=== PATIENT | female | born 1990 | race Caucasian/White ===

== ENCOUNTER 2024-04-23 13:08 | Emergency (ER) | payer MEDICAID ==
[~2024-04-23] VITALS: Ht 175.2 cm; Wt 58.1 kg
[2024-04-23] MEDS ORDERED: SODIUM CHLORIDE 0.9% 1,000 ML IV ONE (14:20)
[2024-04-23 14:37] LABS: BASO # 0.1 10*3/uL (0.0-0.1); BASO % 0.7 % (0.0-1.0); EOS # 0.2 10*3/uL (0.0-0.4); EOS % 2.4 % (1.0-4.0); HEMATOCRIT 43.4 % (37.0-47.0); MEAN CELL VOLUME 97.5 fl (81.0-99.0); MEAN CORPUSCULAR HGB 30.3 pg (27.0-31.0); MEAN CORPUSCULAR HGB CONC 31.1 g/dl (33.0-37.0); MEAN PLATELET VOLUME 10.8 fl (9.6-12.3); MONO # 0.5 10*3/uL (0.1-1.0); MONO % 5.3 % (3.0-9.0); NEUT # 8.2 10*3/uL (2.3-7.9); NEUT % 81.3 % (47.0-73.0); PLATELET COUNT AUTOMATED 196 10*3/uL (130-400); RED BLOOD COUNT 4.45 10*6/uL (4.10-5.10); RED CELL DISTRI WIDTH 11.9 % (0-14.5); WHITE BLOOD COUNT 10.1 10*3/uL (4.8-10.8)
[2024-04-23 14:45] LABS: BILIRUBIN Negative (Negative); BLOOD Negative (Negative); CLARITY Clear (Clear); COLOR Yellow (Yellow); GLUCOSE Negative (Negative); KETONE Negative (Negative); LEUKO ESTERASE 2+ (Negative); NITRITE Negative (Negative)
[2024-04-23] MEDS ORDERED: Ondansetron Hydrochloride 4 MG TAB SL ONE (14:50)
[2024-04-23 14:51] LABS: URINE AMPHETAMINES Negative (1000ng/ml); URINE BARBITURATES Negative (200ng/ml); URINE BENZODIAZEPINES Negative (200ng/ml); URINE CANNABINOIDS (THC) Negative (50ng/ml); URINE COCAINE Negative (300ng/ml); URINE METHADONE Negative (300ng/ml); URINE OPIATES Positive (300ng/ml); URINE PHENCYCLIDINE Negative (25ng/ml)
[2024-04-23 14:52] LABS: BACTERIA 1+
[2024-04-23 14:54] LABS: ALKALINE PHOSPHATASE 105 U/L (46-116); BUN 14 mg/dl (9-23); CHLORIDE 105 mmol/L (98-107); POTASSIUM 3.8 mmol/L (3.4-5.1); SGPT/ALT 21 U/L (5-49); TOTAL PROTEIN 7.3 gm/dL (6.0-8.0)
[2024-04-23] MEDS ORDERED: ZITHROMAX250 MG PO (17:53)
== END 2024-04-23 17:44 | disposition home or self-care (01) ==
LOC: ED 13:08
PROVIDERS: Internal Medicine
DX: K59.00 Constipation, unspecified (principal); R11.2 Nausea with vomiting, unspecified; Z87.442 Personal history of urinary calculi; Z88.0 Allergy status to penicillin; Z88.6 Allergy status to analgesic agent; Z88.8 Allergy status to other drugs, medicaments and biological substances; Z90.49 Acquired absence of other specified parts of digestive tract; Z90.710 Acquired absence of both cervix and uterus; Z98.890 Other specified postprocedural states

== ENCOUNTER 2024-05-07 20:50 | Emergency (ER) | payer MEDICAID ==
[~2024-05-07] VITALS: Ht 175.2 cm; Wt 56.2 kg
[~2024-05-07 20:50] MED LIST: ZITHROMAX250 MG PO
[2024-05-07] MEDS ORDERED: METHYLPHENIDATE72 MG PO (20:59)
[2024-05-07] MEDS ORDERED: TRAZODONE150 MG PO (20:59)
[2024-05-07] MEDS ORDERED: TRULICITY1.5 MG/0.5 SC (20:59)
[2024-05-07] MEDS ORDERED: TIZANIDINE HCL4 MG PO (21:00)
[2024-05-07] MEDS ORDERED: NEURONTIN300 MG PO (21:00)
[2024-05-07] MEDS ORDERED: HYDROmorphONE Hydrochloride 0.5 MG/0.5 ML SYRINGE IM ONE (21:15)
== END 2024-05-07 23:11 | disposition home or self-care (01) ==
LOC: ED 20:50
DX: S80.12XA Contusion of left lower leg, initial encounter (principal); E10.9 Type 1 diabetes mellitus without complications; Z87.442 Personal history of urinary calculi; Z88.0 Allergy status to penicillin; Z88.6 Allergy status to analgesic agent; Z88.8 Allergy status to other drugs, medicaments and biological substances; Z90.49 Acquired absence of other specified parts of digestive tract; Z90.710 Acquired absence of both cervix and uterus; Z98.890 Other specified postprocedural states; W54.1XXA Struck by dog, initial encounter; Y93.89 Activity, other specified; Y92.009 Unspecified place in unspecified non-institutional (private) residence as the place of occurrence of the external cause; Y99.8 Other external cause status

== ENCOUNTER 2024-08-13 18:16 | Emergency (ER) | payer MEDICAID ==
[~2024-08-13] VITALS: Ht 175.2 cm; Wt 57.2 kg
[~2024-08-13 18:16] MED LIST changes: +METHYLPHENIDATE72 MG PO; +NEURONTIN300 MG PO; +TIZANIDINE HCL4 MG PO; +TRAZODONE150 MG PO; +TRULICITY1.5 MG/0.5 SC
[2024-08-13 20:32] LABS: BASO # 0.1 10*3/uL (0.0-0.1); BASO % 1.7 % (0.0-1.0); EOS # 0.5 10*3/uL (0.0-0.4); EOS % 8.6 % (1.0-4.0); HEMATOCRIT 37.8 % (37.0-47.0); LYMPH # 1.6 10*3/uL (1.3-4.4); LYMPH % 26.4 % (27.0-41.0); MEAN CELL VOLUME 98.2 fl (81.0-99.0); MEAN CORPUSCULAR HGB 30.4 pg (27.0-31.0); MEAN PLATELET VOLUME 10.3 fl (9.6-12.3); MONO # 0.5 10*3/uL (0.1-1.0); MONO % 8.8 % (3.0-9.0); NEUT # 3.2 10*3/uL (2.3-7.9); NEUT % 54.2 % (47.0-73.0); PLATELET COUNT AUTOMATED 212 10*3/uL (130-400); RED BLOOD COUNT 3.85 10*6/uL (4.10-5.10); RED CELL DISTRI WIDTH 13.5 % (0-14.5); WHITE BLOOD COUNT 5.9 10*3/uL (4.8-10.8)
[2024-08-13 20:46] LABS: BUN 18 mg/dl (9-23); CHLORIDE 107 mmol/L (98-107); POTASSIUM 4.2 mmol/L (3.4-5.1)
[2024-08-13] MEDS ORDERED: CLINDAMYCIN HC300 MG PO (20:52)
[2024-08-13] MEDS ORDERED: CLINDAMYCIN HCL 300 MG CAPSULE PO ONE (20:55)
[2024-08-13] MEDS ORDERED: Acetaminophen/Oxycodone 5 MG/325 MG TABLET PO ONE (21:00)
== END 2024-08-13 21:28 | disposition home or self-care (01) ==
LOC: ED 18:16
PROVIDERS: Physician Assistant Medical
DX: S02.5XXA Fracture of tooth (traumatic), initial encounter for closed fracture (principal); K08.89 Other specified disorders of teeth and supporting structures; E10.9 Type 1 diabetes mellitus without complications; Z88.0 Allergy status to penicillin; Z88.5 Allergy status to narcotic agent; Z88.6 Allergy status to analgesic agent; Z88.8 Allergy status to other drugs, medicaments and biological substances; Z90.49 Acquired absence of other specified parts of digestive tract; Z90.710 Acquired absence of both cervix and uterus; Z98.890 Other specified postprocedural states; Z87.442 Personal history of urinary calculi; X58.XXXA Exposure to other specified factors, initial encounter; Y93.89 Activity, other specified; Y92.89 Other specified places as the place of occurrence of the external cause; Y99.8 Other external cause status

== ENCOUNTER 2024-11-09 14:47 | Emergency (ER) | payer MEDICAID ==
[~2024-11-09] VITALS: Ht 175.2 cm; Wt 59.9 kg
[~2024-11-09 14:47] MED LIST changes: +CLINDAMYCIN HC300 MG PO
[2024-11-09] MEDS ORDERED: SODIUM CHLORIDE 0.9% 100 ML BAG IV ONE (16:00)
[2024-11-09] MEDS ORDERED: IOHEXOL 350 MG/ML 100 ML VIAL IV ONE (16:00)
[2024-11-09 16:51] LABS: BASO # 0.1 10*3/uL (0.0-0.1); BASO % 1.2 % (0.0-1.0); EOS # 0.3 10*3/uL (0.0-0.4); EOS % 5.8 % (1.0-4.0); HEMATOCRIT 39.4 % (37.0-47.0); MEAN CELL VOLUME 94.5 fl (81.0-99.0); MEAN CORPUSCULAR HGB 29.7 pg (27.0-31.0); MEAN CORPUSCULAR HGB CONC 31.5 g/dl (33.0-37.0); MEAN PLATELET VOLUME 10.8 fl (9.6-12.3); MONO # 0.5 10*3/uL (0.1-1.0); NEUT # 3.6 10*3/uL (2.3-7.9); NEUT % 61.5 % (47.0-73.0); PLATELET COUNT AUTOMATED 268 10*3/uL (130-400); RED BLOOD COUNT 4.17 10*6/uL (4.10-5.10); RED CELL DISTRI WIDTH 13.2 % (0-14.5); WHITE BLOOD COUNT 5.9 10*3/uL (4.8-10.8)
[2024-11-09 17:12] LABS: BUN 12 mg/dl (9-23); CHLORIDE 106 mmol/L (98-107); POTASSIUM 4.2 mmol/L (3.4-5.1)
== END 2024-11-09 18:26 | disposition home or self-care (01) ==
LOC: ED 14:47
PROVIDERS: Physician Assistant Medical
DX: S76.911A Strain of unspecified muscles, fascia and tendons at thigh level, right thigh, initial encounter (principal); R06.02 Shortness of breath; R07.89 Other chest pain; R04.2 Hemoptysis; M54.6 Pain in thoracic spine; E10.9 Type 1 diabetes mellitus without complications; Z86.718 Personal history of other venous thrombosis and embolism; Z87.442 Personal history of urinary calculi; Z88.0 Allergy status to penicillin; Z88.8 Allergy status to other drugs, medicaments and biological substances; Z88.5 Allergy status to narcotic agent; Z88.6 Allergy status to analgesic agent; Z90.710 Acquired absence of both cervix and uterus; Z90.49 Acquired absence of other specified parts of digestive tract; Z98.890 Other specified postprocedural states; X58.XXXA Exposure to other specified factors, initial encounter; Y93.89 Activity, other specified; Y92.009 Unspecified place in unspecified non-institutional (private) residence as the place of occurrence of the external cause; Y99.8 Other external cause status

== ENCOUNTER 2025-01-14 18:56 | Emergency (ER) | payer SELFPAY ==
[~2025-01-14] VITALS: Ht 175.2 cm; Wt 68.9 kg
[2025-01-14] MEDS ORDERED: Phenergan25 MG PO (19:14)
[2025-01-14] MEDS ORDERED: MORPHINE SULFAT20 MG SL (19:16)
[2025-01-14] MEDS ORDERED: TRANSDERM-SCOP1 EAC1 TD (19:17)
[2025-01-14] MEDS ORDERED: GABAPENTIN 300 MG CAP PO ONE (19:25)
[2025-01-14] MEDS ORDERED: Ondansetron Hydrochloride 4 MG TAB SL ONE (19:25)
[2025-01-14] MEDS ORDERED: Acetaminophen/Oxycodone 5 MG/325 MG TABLET PO ONE (19:25)
[2025-01-14 20:14] LABS: BASO # 0.1 10*3/uL (0.0-0.1); BASO % 1.2 % (0.0-1.0); EOS # 0.5 10*3/uL (0.0-0.4); EOS % 5.9 % (1.0-4.0); HEMATOCRIT 38.9 % (37.0-47.0); MEAN CELL VOLUME 93.5 fl (81.0-99.0); MEAN CORPUSCULAR HGB 28.8 pg (27.0-31.0); MEAN CORPUSCULAR HGB CONC 30.8 g/dl (33.0-37.0); MEAN PLATELET VOLUME 10.9 fl (9.6-12.3); MONO # 0.5 10*3/uL (0.1-1.0); MONO % 6.5 % (3.0-9.0); NEUT # 5.2 10*3/uL (2.3-7.9); NEUT % 67.7 % (47.0-73.0); PLATELET COUNT AUTOMATED 239 10*3/uL (130-400); RED BLOOD COUNT 4.16 10*6/uL (4.10-5.10); RED CELL DISTRI WIDTH 13.3 % (0-14.5); WHITE BLOOD COUNT 7.7 10*3/uL (4.8-10.8)
[2025-01-14] MEDS ORDERED: Ondansetron Hydrochloride 4 MG/2 ML VIAL IV ONE ×2 (20:15→21:30)
[2025-01-14] MEDS ORDERED: HYDROmorphONE Hydrochloride 0.5 MG/0.5 ML SYRINGE IV ONE ×2 (20:15→21:30)
[2025-01-14 20:33] LABS: BUN 12 mg/dl (9-23); CHLORIDE 103 mmol/L (98-107)
== END 2025-01-14 21:50 | disposition home or self-care (01) ==
LOC: ED 18:56
PROVIDERS: Internal Medicine
DX: M25.512 Pain in left shoulder (principal); E10.9 Type 1 diabetes mellitus without complications; C50.919 Malignant neoplasm of unspecified site of unspecified female breast; Z86.718 Personal history of other venous thrombosis and embolism; Z87.442 Personal history of urinary calculi; Z88.0 Allergy status to penicillin; Z88.8 Allergy status to other drugs, medicaments and biological substances; Z88.6 Allergy status to analgesic agent; Z88.5 Allergy status to narcotic agent; Z90.49 Acquired absence of other specified parts of digestive tract; Z90.710 Acquired absence of both cervix and uterus; Z98.890 Other specified postprocedural states

== ENCOUNTER 2025-02-15 22:19 | Emergency (ER) | payer MEDICAID ==
[~2025-02-15] VITALS: Wt 59.0 kg
[~2025-02-15 22:19] MED LIST changes: +ATARAX,VISTARIL50 MG PO; +BENZONATATE100 M1 PO; +CYTOTEC200 MCG PO; +IRON325 M1 PO; +LASIX20 MG PO; +MORPHINE SULFAT20 MG SL; +ONDANSETRON ODT16 MG PO; +PRILOSEC20 M1 PO; +Phenergan25 MG PO; +TRANSDERM-SCOP1 EAC1 TD; +Vibra-Tab100 MG PO; +[UNRECOGNIZED DRUG - CODE] PO; +[UNRECOGNIZED DRUG - OTHER] IJ
[2025-02-15 23:02] LABS: BASO # 0.1 10*3/uL (0.0-0.1); BASO % 1.3 % (0.0-1.0); EOS # 0.5 10*3/uL (0.0-0.4); EOS % 8.6 % (1.0-4.0); HEMATOCRIT 38.2 % (37.0-47.0); MEAN CELL VOLUME 95.5 fl (81.0-99.0); MEAN CORPUSCULAR HGB 29.8 pg (27.0-31.0); MEAN CORPUSCULAR HGB CONC 31.2 g/dl (33.0-37.0); MONO # 0.4 10*3/uL (0.1-1.0); MONO % 7.3 % (3.0-9.0); NEUT # 3.5 10*3/uL (2.3-7.9); PLATELET COUNT AUTOMATED 193 10*3/uL (130-400); RED CELL DISTRI WIDTH 14.4 % (0-14.5); WHITE BLOOD COUNT 5.5 10*3/uL (4.8-10.8)
[2025-02-15 23:24] LABS: ALKALINE PHOSPHATASE 61 U/L (46-116); BUN 11 mg/dl (9-23); CHLORIDE 103 mmol/L (98-107); SGPT/ALT 13 U/L (5-49); TOTAL PROTEIN 6.1 gm/dL (6.0-8.0)
[2025-02-16] MEDS ORDERED: PREDNISONE20 M1 PO (00:46)
== END 2025-02-16 01:35 | disposition home or self-care (01) ==
LOC: ED 22:19
PROVIDERS: Internal Medicine
DX: G51.0 Bell's palsy (principal); Z88.0 Allergy status to penicillin; Z88.8 Allergy status to other drugs, medicaments and biological substances; Z88.6 Allergy status to analgesic agent; Z79.899 Other long term (current) drug therapy; Z90.49 Acquired absence of other specified parts of digestive tract; Z90.710 Acquired absence of both cervix and uterus; Z85.3 Personal history of malignant neoplasm of breast

== ENCOUNTER 2025-03-04 17:54 | Emergency (ER) | payer MEDICAID ==
[~2025-03-04] VITALS: Ht 175.2 cm; Wt 59.9 kg
[~2025-03-04 17:54] MED LIST changes: +PREDNISONE20 M1 PO
[2025-03-04 20:47] LABS: BASO # 0.1 10*3/uL (0.0-0.1); BASO % 1.3 % (0.0-1.0); EOS # 0.2 10*3/uL (0.0-0.4); EOS % 2.5 % (1.0-4.0); HEMATOCRIT 40.8 % (37.0-47.0); MEAN CELL VOLUME 97.1 fl (81.0-99.0); MEAN CORPUSCULAR HGB CONC 31.9 g/dl (33.0-37.0); MEAN PLATELET VOLUME 10.6 fl (9.6-12.3); MONO # 0.4 10*3/uL (0.1-1.0); MONO % 5.8 % (3.0-9.0); NEUT # 4.5 10*3/uL (2.3-7.9); NEUT % 71.6 % (47.0-73.0); PLATELET COUNT AUTOMATED 219 10*3/uL (130-400); RED CELL DISTRI WIDTH 14.8 % (0-14.5); WHITE BLOOD COUNT 6.3 10*3/uL (4.8-10.8)
[2025-03-04 21:05] LABS: BUN 15 mg/dl (9-23); CHLORIDE 105 mmol/L (98-107); POTASSIUM 3.8 mmol/L (3.4-5.1)
[2025-03-04] MEDS ORDERED: OXYCODONE HCL (IR) 10 MG TABLET PO ONE (21:40)
[2025-03-04] MEDS ORDERED: Ondansetron Hydrochloride 4 MG TAB SL ONE (21:40)
[2025-03-04] MEDS ORDERED: MEPERIDINE HYDROCHLORIDE 25 MG/1 ML VIAL IM ONE (22:30)
[2025-03-04] MEDS ORDERED: Promethazine Hydrochloride 25 MG/ML VIAL IM ONE (22:30)
== END 2025-03-04 23:02 | disposition home or self-care (01) ==
LOC: ED 17:54
PROVIDERS: Internal Medicine
DX: R07.89 Other chest pain (principal); R50.9 Fever, unspecified; Z88.0 Allergy status to penicillin; Z88.8 Allergy status to other drugs, medicaments and biological substances; Z88.6 Allergy status to analgesic agent; Z79.899 Other long term (current) drug therapy; Z90.49 Acquired absence of other specified parts of digestive tract; Z90.710 Acquired absence of both cervix and uterus

== ENCOUNTER 2025-05-31 14:28 | Emergency (ER) | payer MEDICAID ==
[~2025-05-31] VITALS: Ht 175.2 cm; Wt 61.2 kg
[2025-05-31] MEDS ORDERED: SODIUM CHLORIDE 0.9% 1,000 ML IV SCH (14:45)
[2025-05-31 15:12] LABS: BASO # 0.1 10*3/uL (0.0-0.1); BASO % 1.0 % (0.0-1.0); EOS # 0.1 10*3/uL (0.0-0.4); EOS % 1.6 % (1.0-4.0); MEAN CELL VOLUME 96.4 fl (81.0-99.0); MEAN CORPUSCULAR HGB 30.1 pg (27.0-31.0); MEAN PLATELET VOLUME 11.2 fl (9.6-12.3); MONO # 0.4 10*3/uL (0.1-1.0); MONO % 5.2 % (3.0-9.0); NEUT # 5.8 10*3/uL (2.3-7.9); NEUT % 78.9 % (47.0-73.0); NUCLEATED RED BLOOD CELL 0.0 % (0.0-0.0); NUCLEATED RED BLOOD CELL 0.0 10*3/uL (0.0-0.0); PLATELET COUNT AUTOMATED 332 10*3/uL (130-400); RED CELL DISTRI WIDTH 12.0 % (0-14.5)
[2025-05-31 15:32] LABS: BUN 15 mg/dl (9-23)
[2025-05-31] MEDS ORDERED: Ondansetron Hydrochloride 4 MG/2 ML VIAL IV ONE ×2 (15:50→18:55)
== END 2025-05-31 19:00 | disposition short-term general hospital (02) ==
LOC: ED 14:28
PROVIDERS: Nurse Practitioner Family
DX: A41.9 Sepsis, unspecified organism (principal); E10.9 Type 1 diabetes mellitus without complications; Z79.899 Other long term (current) drug therapy; Z88.0 Allergy status to penicillin; Z88.5 Allergy status to narcotic agent; Z88.6 Allergy status to analgesic agent; Z88.8 Allergy status to other drugs, medicaments and biological substances; Z90.49 Acquired absence of other specified parts of digestive tract; Z90.710 Acquired absence of both cervix and uterus; Z98.890 Other specified postprocedural states

== ENCOUNTER 2025-08-15 21:34 | Emergency (ER) | payer MEDICAID ==
[~2025-08-15] VITALS: Ht 170.2 cm; Wt 58.1 kg
[~2025-08-15 21:34] MED LIST changes: +ELIQUIS5 M1 PO; +NITRO-BID1 GM TD; +OXYCODONE HCL10 M1 PO
[2025-08-15 22:45] LABS: BASO # 0.1 10*3/uL (0.0-0.1); BASO % 1.5 % (0.0-1.0); EOS # 0.3 10*3/uL (0.0-0.4); EOS % 5.1 % (1.0-4.0); MEAN CELL VOLUME 90.8 fl (81.0-99.0); MEAN CORPUSCULAR HGB 28.5 pg (27.0-31.0); MEAN PLATELET VOLUME 11.2 fl (9.6-12.3); MONO # 0.6 10*3/uL (0.1-1.0); MONO % 9.3 % (3.0-9.0); NEUT # 3.8 10*3/uL (2.3-7.9); NEUT % 64.5 % (47.0-73.0); NUCLEATED RED BLOOD CELL 0.0 % (0.0-0.0); NUCLEATED RED BLOOD CELL 0.0 10*3/uL (0.0-0.0); PLATELET COUNT AUTOMATED 254 10*3/uL (130-400); RED CELL DISTRI WIDTH 13.1 % (0-14.5)
[2025-08-16 00:24] LABS: BUN 18 mg/dl (9-23)
== END 2025-08-16 01:45 | disposition home or self-care (01) ==
LOC: ED 21:34
PROVIDERS: Nurse Practitioner Family
DX: R07.89 Other chest pain (principal); R06.02 Shortness of breath; Z88.0 Allergy status to penicillin; Z88.6 Allergy status to analgesic agent; Z88.8 Allergy status to other drugs, medicaments and biological substances; Z79.899 Other long term (current) drug therapy; Z90.49 Acquired absence of other specified parts of digestive tract; Z90.710 Acquired absence of both cervix and uterus

== ENCOUNTER 2025-10-01 12:11 | Emergency (ER) | payer MEDICAID ==
[2025-10-01] MEDS ORDERED: AMLODIPINE BESY10 MG PO (12:36)
== END 2025-10-01 13:51 | disposition home or self-care (01) ==
LOC: ED 12:11
DX: S16.1XXA Strain of muscle, fascia and tendon at neck level, initial encounter (principal); S09.90XA Unspecified injury of head, initial encounter; I10 Essential (primary) hypertension; G43.909 Migraine, unspecified, not intractable, without status migrainosus; K21.9 Gastro-esophageal reflux disease without esophagitis; Z86.718 Personal history of other venous thrombosis and embolism; Z90.49 Acquired absence of other specified parts of digestive tract; Z90.710 Acquired absence of both cervix and uterus; Z98.890 Other specified postprocedural states; Z88.0 Allergy status to penicillin; Z88.1 Allergy status to other antibiotic agents; Z88.5 Allergy status to narcotic agent; Z88.8 Allergy status to other drugs, medicaments and biological substances; Z87.442 Personal history of urinary calculi; X58.XXXA Exposure to other specified factors, initial encounter; Y93.89 Activity, other specified; Y92.89 Other specified places as the place of occurrence of the external cause; Y99.8 Other external cause status

== ENCOUNTER 2025-11-03 22:27 | Emergency (ER) | payer MEDICAID ==
[~2025-11-03] VITALS: Ht 175.2 cm; Wt 60.8 kg
[~2025-11-03 22:27] MED LIST changes: +AMLODIPINE BESY10 MG PO
[2025-11-03] MEDS ORDERED: VIBRAMYCIN100 MG PO (23:30)
[2025-11-03] MEDS ORDERED: Dexamethasone Sodium Phospha 4 MG/ML VIAL IM ONE (23:30)
== END 2025-11-03 23:44 | disposition home or self-care (01) ==
LOC: ED 22:27
DX: T88.7XXA Unspecified adverse effect of drug or medicament, initial encounter (principal); Z90.710 Acquired absence of both cervix and uterus; Z90.49 Acquired absence of other specified parts of digestive tract; Z98.890 Other specified postprocedural states; Z88.0 Allergy status to penicillin; Z88.5 Allergy status to narcotic agent; Z88.1 Allergy status to other antibiotic agents; Z88.8 Allergy status to other drugs, medicaments and biological substances; Z88.6 Allergy status to analgesic agent; Z87.442 Personal history of urinary calculi; Z86.718 Personal history of other venous thrombosis and embolism; Y92.89 Other specified places as the place of occurrence of the external cause